=== PATIENT | female | born 1980 | race Caucasian/White ===

== ENCOUNTER 2021-05-17 08:15 | Outpatient (CLI) | payer OTHER ==
[~2021-05-17 08:15] MED LIST: ORTHO TRI-7 DAYSX 3
== END 2021-05-17 08:26 | disposition home or self-care (01) ==
LOC: MAMO-SONO 08:15
PROVIDERS: ATTEND Obstetrics & Gynecology
DX: N60.11 Diffuse cystic mastopathy of right breast (principal)